=== PATIENT | male | born 1995 | race Caucasian/White ===

== ENCOUNTER 2025-06-24 10:34 | Outpatient (CLI) | payer BC, SELFPAY ==
--- NOTE | 2025-06-24 10:30 | RT.EKG_ITS ---
APPROVED REPORT Exam: Resting ECG Reason for Exam: Pain Patient Location: O HR:58 bpm ECG Measurements Heart Rate 58 AXIS AK 141 P 58 QRSd 103 QRS 68 QT 406 T 55 QTc 399 Conclusion Sinus rhythm...normal P axis, V-rate 50- 99 Normal Electrocardiogram
== END 2025-06-24 10:35 | disposition home or self-care (01) ==
LOC: DI.CM 10:36
PROVIDERS: PCP Nurse Practitioner Family; Visit Provider Nurse Practitioner Family
DX: F10.90 Alcohol use, unspecified, uncomplicated (principal)
CPT/HCPCS: 93010

== ENCOUNTER 2025-06-24 16:18 | Outpatient (REF) | payer BC, SELFPAY ==
[2025-06-24 18:54] LABS: ALT 79 U/L (16-63); AST 28 U/L (15-37); Albumin 4.7 g/dL (3.4-5.0); Alkaline Phosphatase 75 U/L (46-116); Anion Gap 7.1 mmol/L (3-11); BUN 17 mg/dL (7-18); Bilirubin, Total 0.5 mg/dL (0.2-1.0); CO2 30.9 mmol/L (21.0-32.0); Calcium 9.6 mg/dL (8.5-10.1); Chloride 103 mmol/L (98-107); Estimated GFR 122.86 (mL/min/1.73m2); Glucose 86 mg/dL (74-106); Potassium 4.0 mmol/L (3.5-5.1); Sodium 141 mmol/L (136-145); Total Protein 7.1 g/dL (6.4-8.2)
== END 2025-06-24 16:19 | disposition home or self-care (01) ==
LOC: LBN 16:18
PROVIDERS: PCP Nurse Practitioner Family; Visit Provider Nurse Practitioner Family
DX: F10.90 Alcohol use, unspecified, uncomplicated (principal)
CPT/HCPCS: 80053